=== PATIENT | male | born 1985 | race Two or more races ===

== ENCOUNTER 2018-11-24 19:12 | Emergency (ER) | payer OTHER ==
[~2018-11-24] VITALS: Ht 180.3 cm; Wt 120.2 kg
[2018-11-24] MEDS ORDERED: PROTONIX40 MG (19:28)
[2018-11-24] MEDS ORDERED: CARAFATE1 GM (19:28)
[2018-11-25] MEDS ORDERED: DICY20TA (11:50)
[2018-11-26] MEDS ORDERED: ULTRACET PO (12:12)
== END 2018-11-25 00:06 | disposition home or self-care (01) ==
LOC: ER 19:12
DX: K80.20 Calculus of gallbladder without cholecystitis without obstruction (principal); R10.30 Lower abdominal pain, unspecified; K62.5 Hemorrhage of anus and rectum

== ENCOUNTER 2018-11-26 04:45 | Day surgery (SDC) | payer OTHER ==
[~2018-11-26 04:45] MED LIST: CARAFATE1 GM; DICY20TA; PROTONIX40 MG
[2018-11-26] MEDS ORDERED: ULTRACET PO (12:12)
== END 2018-11-26 14:05 | disposition home or self-care (01) ==
LOC: CIR.AMB 04:45
DX: K80.10 Calculus of gallbladder with chronic cholecystitis without obstruction (principal)

== ENCOUNTER 2019-05-15 12:02 | Emergency (ER) | payer OTHER ==
[~2019-05-15] VITALS: Ht 180.3 cm; Wt 122.5 kg
[~2019-05-15 12:02] MED LIST changes: +ULTRACET PO
[2019-05-15] MEDS ORDERED: AUGMENTIN XR 11 EACH PO (12:38)
== END 2019-05-15 16:07 | disposition home or self-care (01) ==
LOC: ER 12:02
DX: S61.224A Laceration with foreign body of right ring finger without damage to nail, initial encounter (principal); S61.222A Laceration with foreign body of right middle finger without damage to nail, initial encounter; W18.09XA Striking against other object with subsequent fall, initial encounter; Y93.89 Activity, other specified; Y92.098 Other place in other non-institutional residence as the place of occurrence of the external cause; Y99.8 Other external cause status

== ENCOUNTER 2022-11-05 08:31 | Emergency (ER) | payer OTHER ==
[~2022-11-05] VITALS: Ht 180.3 cm; Wt 124.7 kg
[~2022-11-05 08:31] MED LIST changes: +AUGMENTIN XR 11 EACH PO
[2022-11-05] MEDS ORDERED: MEDROLPACK PO (10:04)
[2022-11-05] MEDS ORDERED: DICLOFENAC SODI75 MG PO (10:04)
== END 2022-11-05 10:08 | disposition home or self-care (01) ==
LOC: ER 08:31
DX: M50.321 Other cervical disc degeneration at C4-C5 level (principal)